=== PATIENT | female | born 2005 | race African-American/Black ===

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

== ENCOUNTER 2025-01-08 16:10 | Emergency (ER) | payer MEDICAID ==
[~2025-01-08] VITALS: Ht 162.6 cm; Wt 67.6 kg
--- NOTE | 2025-01-08 16:40 | RADIOLOGY REPORT ---
CLINICAL INDICATION: ANKLE PAIN TECHNIQUE: 3 radiographic views of the left ankle were obtained. Comparison: None FINDINGS/IMPRESSION: There is no evidence of acute fracture or dislocation. Sclerotic focus over the talus which may represent a small bone island. The visualized joint space is well maintained. The alignment is anatomical. There is no radiopaque foreign body.
--- NOTE | 2025-01-08 16:51 | Physician Documentation ---
History of Present Illness ~ Chief Complaint: Ankle pain Stated Complaint: L ANKLE PAIN/FELL Time Seen by MD: 16:41 OK to notify your PCP?: Yes Primary Medical Doctor: No PMD Mode of Arrival: POV, Ambulatory HPI [age] years female patient with a history of asthma and allergy and anxiety on medication came to the emergency room ambulatory by private vehicle because of left ankle pain after she fell and twisted left ankle yesterday. She has been ambulatory with some pain since then. No other complaints. Tetanus witin 5 years: No Medication Reconciliation Allergies: Coded Allergies: Penicillins (Verified Allergy, Unknown, 01/08/25) Scheduled Divalproex Sodium DR* (Depakote DR*), 1 TAB PO Q12H Scheduled PRN Lorazepam (Ativan), 1 TAB PO Q12H PRN PRN for anxiety albuterol inhaler (Pro-Air Inhaler), 2 PUFFS INH Q4HPRN PRN for wheezing Review of Systems ROS As stated above in the HPI, otherwise all systems are reviewed and negative. Physical Exam Vital Signs: Temperature: 97.0, Source: Temporal, Heart Rate: 80, Respiratory Rate: 16, BP: 102/55, Pulse Oximetry: 100, Weight: 67.600 Oxygen Flow Rate: 0 Progress Results/Orders Results/Orders Orders - ALVIN SHIELDS MD, Complete(3vw Min) (01/08/25 16:19) General Nursing Order (01/08/25 16:45) Completed Orders - ALVIN SHIELDS MD, Complete(3vw Min) (01/08/25 16:19) Vital Signs 01/08/25 01/08/25 16:17 18:29 Temp 97.0 97.0 Pulse 80 68 Resp 16 18 B/P (MAP) 102/55 94/55 Pulse Ox 100 99 O2 Flow Rate 0 Medical Decision Making Additional information obtaine: other Findings During the physical examination, the findings suggestive of acute life- threatening condition such as JVD, tracheal deviation, acidotic breathing, noisy stridorous breath sounds, pulses paradoxus, muffled heart sounds, unequal breath sounds, abdominal rigidity and rebound tenderness, focal neurological deficits, cool clammy skin, severe hypotension, severe tachycardia or bradycardia are absent. Const: Not in any distress Head: Atraumatic Eyes: Normal Conjunctiva ENT: Normal External Ears, Nose and Mouth. Moist mucous membranes Neck: Full range of motion. No meningismus Resp: Clear to auscultation bilaterally. Normal work of breathing Cardio: Regular rate and rhythm, no murmurs. Skin well perfused Abd: Soft, non-tender, non-distended. Normal bowel sounds. No rebound or guarding Skin: No petechiae or rashes. Warm and dry Back: No midline or flank tenderness Ext: No cyanosis, or edema Examination of the left foot and ankle: There is soft tissue swollen in the lateral aspect of the ankle but there was no deformity and the ankle range of movement is normal. Distal circulation sensation intact. Neuro: Awake and alert Psych: Normal Mood and Affect General Diff Dx:Considerations: Include: Abrasion Knee Diff Dx:Considerations: Include: Abrasion Ankle Diff Dx:Considerations: Include: Abrasion Foot Diff Dx:Considerations: Include: Abrasion Toe Diff Dx:Considerations: Include: Abrasion Departure Disposition: 01 HOME / SELF CARE / HOMELESS Impression: Primary Impression: Sprain of ankle Condition: Stable Discharge Instructions: Ankle Pain Additional Instructions: Thank you for coming to our Emergency Department today. Rice protocol. Do take Tylenol extra strength one tablet together with ibuprofen 200 mg every 6 hours as needed Please ask your nurse or provider if you have questions about your care today and do not leave until all your questions have been answered. Please use any medications given as directed and follow-up with your doctor (or the doctor you were referred to) in the next 1-3 days. Your primary care doctor can help to coordinate outpatient specialty care and provide authorization for specialty referral as needed. If you do not have a primary care doctor you may follow up at a [facility] facility. You may also use motrin and tylenol as needed for fever and/or pain unless instructed otherwise by your provider or nurse. Indications for more urgent follow-up have been discussed, but you may return to the Emergency Department at ANY time for any worrisome or worsening symptoms. [facility] Facilities: [facility] Facilities: [facility]: [facility] [place] Address:[address] [place], [place] [id number] [facility]: [place] Address:[address] [place] [id number] [facility]: [facility] Address:[address] [place] [address] [facility] Address:[address] [place], [place] [id number] Registration Billing Pharmacy Referrals [facility] Address:[address] [place] [address] Referrals: NO PRIMARY CARE PROVIDER (PCP) Signature Scribe Signature: x Attestation: ALVIN Adkins MD Jan 08, 2025 16:50
[2025-01-08 18:29] VITALS: BP 94/55; PULSE 68; RESP 18; TEMP 97; O2SAT 99
== END 2025-01-08 18:31 | disposition home or self-care (01) ==
LOC: ER 16:10
DX: S93.492A Sprain of other ligament of left ankle, initial encounter (principal); Z88.0 Allergy status to penicillin; Z79.899 Other long term (current) drug therapy; X50.1XXA Overexertion from prolonged static or awkward postures, initial encounter; Y93.89 Activity, other specified; Y92.89 Other specified places as the place of occurrence of the external cause; Y99.8 Other external cause status
CPT/HCPCS: 73610; 99283

== ENCOUNTER 2025-01-28 09:59 | Emergency (ER) | payer MEDICAID ==
[~2025-01-28] VITALS: Ht 162.6 cm; Wt 67.7 kg
[2025-01-28 10:01] VITALS: BP 128/78; PULSE 90; RESP 20; O2SAT 100
--- NOTE | 2025-01-28 10:21 | Physician Documentation ---
History of Present Illness ~ Chief Complaint: Anxiety Stated Complaint: PANIC ATTACK Time Seen by MD: 10:10 Primary Medical Doctor: [facility] HPI History of Present Illness: 19-year-old female presented to the emergency department with symptoms consistent with a panic attack earlier today. Appears better reports that she feels better at this time. Patient reports that she has breathing exercises and mental stress relieving exercises that she is able to utilize. Patient reports he will follow up with the mental health provider. Medication Reconciliation Allergies: Coded Allergies: Penicillins (Verified Allergy, Unknown, 01/28/25) Scheduled Divalproex Sodium DR* (Depakote DR*), 1 TAB PO Q12H Scheduled PRN Lorazepam (Ativan), 1 TAB PO Q12H PRN PRN for anxiety albuterol inhaler (Pro-Air Inhaler), 2 PUFFS INH Q4HPRN PRN for wheezing Review of Systems ROS As stated above in the HPI, otherwise all systems are reviewed and negative. Physical Exam Vital Signs: Temperature: 99.3, Source: Temporal, Heart Rate: 90, Respiratory Rate: 20, BP: 128/78, Pulse Oximetry: 100, Weight: 67.700 Oxygen Flow Rate: 0 Physical Exam VITALS: Reviewed and as above. GENERAL: Alert, no apparent distress. HEENT: Normocephalic, atraumatic, PERRL, EOMI, dry mucosa, no erythema RESPIRATORY: Lungs clear, normal breath sounds, no respiratory distress. CHEST: No accessory muscle use, no retractions CV: Regular rate, rhythm, no edema, no murmur, No: JVD GI: Soft, non-tender, bowels sounds present, no rebound, guarding, or rigidity BACK: No CVA tenderness, or swelling MUSCULOSKELETAL No deformities, no edema SKIN: Warm and dry, no rash NEURO: Oriented x4, No motor or sensory deficit PSYCH: Normal mood and affect, no agitation Progress Results/Orders Results/Orders Vital Signs 01/28/25 10:01 Temp 99.3 Pulse 90 Resp 20 B/P (MAP) 128/78 Pulse Ox 100 O2 Flow Rate 0 Medical Decision Making Additional information obtaine: other Findings MEDICAL DECISION MAKING - DISCHARGE Chief Complaint: Panic attack History of Present Illness: 19-year-old female presented to the emergency department with symptoms consistent with a panic attack. Patient reported experiencing an abrupt surge of intense fear with associated physical and cognitive symptoms. Differential Diagnosis Considered: Panic attack (primary diagnosis) Panic disorder Other anxiety disorders Cardiac arrhythmia Hyperthyroidism Asthma exacerbation Substance use or withdrawal Evaluation and Assessment: A focused medical assessment was performed to evaluate for potential medical causes of anxiety symptoms. Patient history, physical examination, and clinical presentation were consistent with panic attack rather than underlying medical conditions such as cardiac arrhythmias, hyperthyroidism, or respiratory disorders. No evidence of substance use or withdrawal was identified. Patient's symptoms were assessed for persistence, distress, and functional impairment to determine if criteria for panic disorder or other anxiety disorders were met. The patient has an established mental health provider, suggesting ongoing psychiatric care. Treatment Provided: Patient's symptoms improved with non-pharmacologic interventions, specifically exercise and breathing techniques. No pharmacologic intervention was required during this visit. Patient demonstrated good response to these self-management strategies. Risk Assessment: Patient was screened for comorbid conditions including depression and suicidality, which are important considerations in patients presenting with anxiety symptoms. No acute safety concerns were identified at time of discharge. Disposition and Plan: Patient is being discharged home with improvement in symptoms. The following discharge plan was discussed with the patient: Continue using exercise and breathing techniques for symptom management Follow up with established mental health provider for ongoing evaluation and potential initiation of first-line treatment (cognitive behavioral therapy or pharmacotherapy with SSRI/SNRI if indicated) Return to emergency department if anxiety symptoms become unmanageable, if panic attacks increase in frequency or severity, or if patient develops concerning symptoms requiring urgent evaluation Patient verbalized understanding of discharge instructions and return precautions Clinical Reasoning: Early intervention and appropriate follow-up are important for patients presenting with panic attacks to reduce potential long-term consequences. Given the patient's symptom improvement with non-pharmacologic techniques and established mental health care, outpatient management is appropriate. The patient was counseled on the importance of mental health follow-up, as evidence supports that brief cognitive behavioral therapy interventions (typically 8-20 sessions) or pharmacotherapy continued for at least 1 year can be effective for anxiety disorder treatment. Patient meets criteria for safe discharge with low risk for immediate complications and appropriate outpatient follow-up arranged. Differential Dx:Considerations: Include: Alcohol abuse, Anxiety, Bipolar disorder, Conversion disorder, Depression, Encephaloathy, Homicidal, Panic disorder, Personality disorder, Schizophrenia, Substance abuse, Suicidal, Other Departure Disposition: 01 HOME / SELF CARE / HOMELESS Impression: Primary Impression: Anxiety Additional Impression: Panic attack Condition: Stable Discharge Instructions: Panic Attack Additional Instructions: What happened today: You came to the emergency department because you had a panic attack. A panic attack is a sudden episode of intense fear or anxiety that can cause physical symptoms like a racing heart, chest pain, sweating, shaking, dizziness, and trouble breathing. These symptoms can feel very scary, but they are not dangerous and will go away on their own. [1] The good news is that your symptoms improved after you used exercise and breathing techniques. This shows that these techniques work well for you. [3] What to do at home: Continue using your breathing and exercise techniques when you feel anxious. These are proven ways to help manage panic symptoms. [1][3] Follow up with your mental health provider as planned. Early treatment is very important and can help prevent panic attacks from happening again in the future. Your mental health provider may recommend: [2-3] Talk therapy (called cognitive behavioral therapy or CBT), which has been shown to be very effective for panic disorder [1] Medication if needed, such as antidepressants (SSRIs), which are the first-line treatment for panic disorder [1] A combination of both therapy and medication, which often works better than either treatment alone [1] Stay physically active. Regular exercise can help reduce anxiety symptoms. [1][4] Avoid caffeine and other stimulants, as these can make anxiety worse. Get enough sleep and try to maintain a regular sleep schedule. When to return to the emergency department: Come back to the emergency department or call 911 if you experience: Chest pain that feels different from your panic attack today Severe shortness of breath that does not improve with your breathing techniques Thoughts of hurting yourself or others Panic symptoms that you cannot control with your usual techniques Any new or concerning symptoms Important reminders: Panic attacks are treatable, and many people get better with the right treat ment. [1-2] It may take some time to find the treatment that works best for you. Do not stop any medications without talking to your mental health provider first. If you have trouble getting an appointment with your mental health provider, please call them as soon as possible or ask your primary care doctor for help. Questions? If you have questions about your care or need help finding mental health services, please contact your primary care doctor or mental health provider. Referrals: NO PRIMARY CARE PROVIDER (PCP) Education Educated: Patient Educated regarding: diagnosis, treatment, need for follow up Signature Scribe Signature: A Attestation: Scribed for Philip Coto by GREGORIO Mcknight . 01/28/25 10:20 PHILIP COTO Jan 28, 2025 10:21
[2025-01-28 10:26] VITALS: TEMP 99.3
== END 2025-01-28 10:27 | disposition home or self-care (01) ==
LOC: ER 09:59
DX: F41.0 Panic disorder [episodic paroxysmal anxiety] (principal); I49.9 Cardiac arrhythmia, unspecified; E05.90 Thyrotoxicosis, unspecified without thyrotoxic crisis or storm; Z88.0 Allergy status to penicillin; Z79.899 Other long term (current) drug therapy
CPT/HCPCS: 99283